=== PATIENT | male | born 1990 | race Caucasian/White ===

== ENCOUNTER 2019-09-25 17:25 | Emergency (ER) | payer OTHER, SELFPAY ==
[2019-09-25 17:40] VITALS: BP 128/73; PULSE 88; RESP 16; TEMP 37.1; O2SAT 98
--- NOTE | 2019-09-25 18:28 | ED.URI ---
HPI - URI/Sore Throat General Chief Complaint: Upper Respiratory Infection Stated Complaint: Sore Throat/headache/weakness Time Seen by Provider: 09/25/19 17:29 Source: patient Mode of arrival: ambulatory Limitations: no limitations History of Present Illness HPI Narrative: 29-year-old male presents to urgent with complaints of headache, dry cough, nasal congestion, runny nose and body aches since yesterday. Patient reports that a coworker was recently diagnosed with influenza A. Patient denies fever, shortness of breath or wheezing. Patient also reports a large bump to his inner lower lip for the past 5 weeks. Patient reports that he does believe that he bit his prior to symptoms starting. MD elicited complaint: cough, rhinorrhea and nasal congestion Onset (ago): day(s) (1) Able to tolerate fluids by mouth: Yes Exacerbating factors: nothing Relieving factors: nothing Related Data Allergies Allergy/AdvReac Type Severity Reaction Status Date / Time No Known Allergies Allergy Unverified 07/21/16 13:38 Review of Systems Review of Systems: All systems reviewed & are unremarkable except as noted in HPI and below Constitutional: Constitutional: Denies chills and Denies fever(s) Comments: body aches ENT: Reports nasal congestion Comments: Cough, runny nose; painful bump to inner lower lip Respiratory: Respiratory: Denies chest congestion, Reports cough, Denies dyspnea and Denies wheezing Gastrointestinal: Gastrointestinal: Denies abdominal pain, Denies diarrhea, Denies nausea and Denies vomiting Musculoskeletal: Musculoskeletal: Denies muscle cramps Neurologic: Denies dizziness, Denies syncope, Reports headache(s) and Denies weakness PMFSH Family History Family History Grandparent Family history of thyroid disease Mother Family history of thyroid disease Father Family history of malignant neoplasm of brain, Onset Age: 51 Social History Social History Smoking status: Never smoker Alcohol intake: current Exam Const: General: healthy appearing, no acute distress and alert Nutritional Appearance: well nourished Orientation/consciousness: patient oriented x3 HENMT: Head: normal to inspection Ears: external ears normal and TM's normal bilaterally General nose exam: Normal nares present Face and sinus: sinuses nontender Throat: posterior oropharynx normal and uvula midline Other: 1.5 cm area of swelling noted to inner lower lip; there is no fluctuance or induration noted. There is no signs of infection noted Neck: Neck: normal visual inspection and no lymphadenopathy Resp: Effort & Inspection: normal respiratory effort Auscultation: clear to auscultation bilaterally Cardio: Rate: regular rate Rhythm: regular rhythm Heart sounds: no murmurs Skin: General skin exam: normal color Rashes: no rashes Neuro: General: patient oriented x3, moves all extremities and no focal motor deficits Speech: normal speech Psych: Appearance: grossly normal and well kempt Mental Status: mental status grossly normal Affect: normal affect Attitude: cooperative Thought content: Yes Normal thought content present Course Vital Signs Vital signs: Vital Signs Temperature 37.1 C 09/25/19 17:40 Pulse Rate 88 09/25/19 17:40 Respiratory Rate 16 09/25/19 17:40 Blood Pressure 128/73 09/25/19 17:40 Pulse Oximetry 98 09/25/19 17:40 Temperature 37.1 C 09/25/19 17:40 Pulse Rate 88 09/25/19 17:40 Respiratory Rate 16 09/25/19 17:40 Blood Pressure 128/73 09/25/19 17:40 Pulse Oximetry 98 09/25/19 17:40 MDM - URI/Sore Throat MDM Narrative Medical decision making narrative: Due to bump to lower lip been present for 5 weeks, patient was referred to dermatology to have area evaluated. Patient agrees to call dermatology tomorrow for an appointment. Due to recent exposure and flulike sympto
== END 2019-09-25 18:32 | disposition home or self-care (01) ==
PROVIDERS: Emergency Provider Nurse Practitioner Family; PCP Chiropractor
DX: J11.1 Influenza due to unidentified influenza virus with other respiratory manifestations (principal)
CPT/HCPCS: 87804; 99203; G0463

== ENCOUNTER 2020-10-30 11:25 | Emergency (ER) | payer OTHER, SELFPAY ==
--- NOTE | 2020-10-30 11:50 | ED.URI ---
HPI - URI/Sore Throat General Chief Complaint: Upper Respiratory Infection Stated Complaint: body aches/fatigue/barros Time Seen by Provider: 10/30/20 11:51 Source: patient and RN notes reviewed Mode of arrival: ambulatory Limitations: no limitations History of Present Illness HPI Narrative: 30-year-old male presents to the [facility] with complaints of fatigue and upper respiratory issues. Patient states that he was exposed to someone with covid over the weekend. Denies fever, Nausea, vomiting. Denies CP and abd pain. Related Data Home Medications Medication Instructions Recorded Confirmed cholecalciferol (vitamin D3) 10/30/20 [Vitamin D3] docosahexaenoic acid-epa [Fish Oil] cap 10/30/20 magnesium oxide-Mg AA chelate cap PO 10/30/20 [Magnesium (oxide/AA chelate)] Allergies Allergy/AdvReac Type Severity Reaction Status Date / Time No Known Allergies Allergy Unverified 10/30/20 11:43 Review of Systems Review of Systems: Narrative: CONSTITUTIONAL: Denies fever, chills, or sweats. Reports generalized fatigue EYES: Denies visual changes, redness, or discharge. ENT: Reports rhinorrhea, congestion, sore throat, or otalgia. CARDIOVASCULAR: Denies chest pain, palpitations, or edema. RESPIRATORY: Denies cough or dyspnea. GASTROINTESTINAL: Denies abdominal pain, nausea, vomiting, or diarrhea. SKIN: Denies rash or itching. MUSCULOSKELETAL: Denies back pain, joint pain, or myalgia. NEUROLOGIC: Denies headache, numbness, or weakness. PSYCHIATRIC: Denies anxiety or depression. All other systems reviewed are negative, except as documented in HPI. [facility] Family History Family History Grandparent Family history of thyroid disease Mother Family history of thyroid disease Father Family history of malignant neoplasm of brain, Onset Age: 51 Social History Social History Smoking status: Never smoker Alcohol intake: current Comments At the time of my signature, I reviewed and agree with the nursing past medical, surgical, social, and family history. There is no relevant family history pertinent to the patient complaint. Exam Narrative: Exam Narrative: GENERAL: This is a well-nourished, well-developed patient. appears mildly ill HEAD: normocephalic, atraumatic. EYES: PERRL. Sclera clear/white. Vision is grossly intact. EARS: External ears normal, auditory canals clear and without drainage, TMs normal without perforation. Hearing grossly intact. NOSE: External nose normal. nares with redness with rhinorrhea. THROAT: Mucous membranes moist, posterior pharynx clear. NECK: Neck supple, non-tender without lymphadenopathy, masses or thyromegaly. CARDIOVASCULAR: Regular rate and rhythm without murmurs, gallops, or rubs. RESPIRATORY: Clear to auscultation. Breath sounds equal bilaterally. No wheezes, rales, or rhonchi. GASTROINTESTINAL: Abdomen soft, non-tender, nondistended SKIN: warm, intact with no suspicious lesions or rash, good texture and turgor. NEURO: awake, alert, and oriented to person, place and time. There were no obvious focal neurologic abnormalities. EXTREMITIES: No joint tenderness, effusion, or edema noted. BACK: Nontender without deformity. Course Vital Signs Vital signs: Vital Signs Temperature 99.6 F 10/30/20 11:52 Pulse Rate 91 10/30/20 11:52 Respiratory Rate 16 10/30/20 11:52 Blood Pressure 129/86 10/30/20 11:52 Pulse Oximetry 100 10/30/20 11:52 Temperature 99.6 F 10/30/20 11:52 Pulse Rate 91 10/30/20 11:52 Respiratory Rate 16 10/30/20 11:52 Blood Pressure 129/86 10/30/20 11:52 Pulse Oximetry 100 10/30/20 11:52 reviewed MDM - URI/Sore Throat MDM Narrative Medical decision making narrative: Discharge instructions reviewed with patient, as well as provided in writing per nursing staff. The instructions also include specific and strict return/GO TO THE ER as
[2020-10-30 11:52] VITALS: BP 129/86; PULSE 91; RESP 16; TEMP 37.6; O2SAT 100
== END 2020-10-30 12:45 | disposition home or self-care (01) ==
PROVIDERS: Emergency Provider Nurse Practitioner; PCP Chiropractor
DX: U07.1 COVID-19 (principal)
CPT/HCPCS: 87426; 99213; C9803; G0463